=== PATIENT | female | born 1960 | race Caucasian/White ===

== ENCOUNTER 2019-08-23 19:47 | Emergency (ER) | payer MEDICARE, MEDICAID ==
[~2019-08-23] VITALS: Ht 147.3 cm; Wt 35.4 kg
--- NOTE | 2019-08-23 20:30 | NUR ---
PT HAS CO OF COUGH W GREEN SPUTUM AND "DIARRHEA FOR OVER A 1 YEAR". PT STATES "I HEAR A WHISTLING IN MY CHEST". PT STATES IT IS DIFFICULT TO BREATH AND WALK. MEDICAL STUDENT AT BEDSIDE. PT IS NOT IN ANY DISTRESS AT THIS TIME. VS STABLE.
[2019-08-23 20:32] VITALS: BP 130/85
--- NOTE | 2019-08-23 20:47 | NUR ---
RECEIVED REPORT FROM ROQUE Mendoza. ASSUMING CARE AT THIS TIME.
--- NOTE | 2019-08-23 20:47 | NUR ---
PT TAKEN TO XRAY.
--- NOTE | 2019-08-23 20:56 | NUR ---
ALL RESULTS ARE BACK AT THIS TIME. CHART UP FOR RECHECK.
--- NOTE | 2019-08-23 21:10 | NUR ---
MD AT BEDSIDE TO UPDATE PT ON POC.
== END 2019-08-23 21:54 | disposition home or self-care (01) ==
LOC: ED 21:30
DX: J44.1 Chronic obstructive pulmonary disease with (acute) exacerbation (principal); F17.200 Nicotine dependence, unspecified, uncomplicated
CPT/HCPCS: 71046; 93005; 99283

== ENCOUNTER 2019-10-11 13:31 | Emergency (ER) | payer MEDICAID, MEDICARE ==
[~2019-10-11] VITALS: Ht 147.3 cm; Wt 35.1 kg
[2019-10-11 14:29] LABS: BASOPHILS # (AUTO) 0.05 x10^3/uL (0-0.1); BASOPHILS % (AUTO) 1 % (0-1); EOSINOPHILS # (AUTO) 0.42 x10^3/uL (0-0.4); EOSINOPHILS % (AUTO) 5 % (1-7); LYMPHOCYTES % (AUTO) 32 % (22-44); MD NO; MEAN CORPUSCULAR HEMOGLOBIN 33.9 pg (27.0-34.8); MEAN CORPUSCULAR HGB CONC 34.6 g/dL (32.4-35.8); MEAN CORPUSCULAR VOLUME 97.9 fL (80-100); MEAN PLATELET VOLUME 7.4 fL (7.4-10.4); MONOCYTES # (AUTO) 0.55 x10^3/uL (0.2-0.8); MONOCYTES % (AUTO) 6 % (2-9); NEUTROPHILS # (AUTO) 5.03 x10^3/uL (1.8-6.8); NEUTROPHILS % (AUTO) 57 % (42-75); PLATELET COUNT 317 x10^3/uL (130-400); RED BLOOD COUNT 4.86 x10^6/uL (3.82-5.3); RED CELL DISTRIBUTION WIDTH 12.9 % (9.6-15.2)
[2019-10-11 14:37] LABS: ALBUMIN 3.6 g/dL (3.4-5.0); ANION GAP 6 mmol/L (5-15); CHLORIDE 104 mmol/L (98-107)
[2019-10-11 14:42] LABS: CREATININE 0.77 mg/dL (0.55-1.02)
[2019-10-11 14:43] LABS: ALANINE AMINOTRANSFERASE 31 U/L (12-78); ALKALINE PHOSPHATASE 86 U/L (45-117); BILIRUBIN,TOTAL 0.4 mg/dL (0.2-1.0); TOTAL PROTEIN 8.1 g/dL (6.4-8.2); TROPONIN I < 0.015 ng/mL (0.000-0.045)
--- NOTE | 2019-10-11 16:32 | NUR ---
ASSISTANT EDITOR: PT AMBULATED TO ROOM AT THIS TIME. STEADY UPON AMBULATION. NAD NOTED.
[2019-10-11] MEDS ORDERED: ALBUTEROL/IPRATROPIUM 2.5MG/0.5MG, 3 ML ONE (17:12)
[2019-10-11] MEDS ORDERED: ALBUTEROL/IPRATROPIUM 2.5MG/0.5MG, 3 ML NPPB ONE (17:30)
--- NOTE | 2019-10-11 17:44 | NUR ---
JANNETTE RN: MEDICATED PER Oct.24 RIGHTS VERIFIED PRIOR.
[2019-10-11 17:48] VITALS: BP 126/75
--- NOTE | 2019-10-11 17:56 | NUR ---
DISCHARGE INSTRUCTIONS REVIEWED
== END 2019-10-11 18:15 | disposition home or self-care (01) ==
LOC: ED 18:00
DX: J43.9 Emphysema, unspecified (principal); F17.200 Nicotine dependence, unspecified, uncomplicated; R19.7 Diarrhea, unspecified
CPT/HCPCS: 36415; 71046; 80053; 83880; 84484; 85025; 93005; 94640; 99285; J7512; J7620

== ENCOUNTER 2019-12-03 11:41 | Emergency (ER) | payer MEDICARE ==
[~2019-12-03] VITALS: Ht 147.3 cm; Wt 36.8 kg
[2019-12-03 12:03] VITALS: BP 125/65
--- NOTE | 2019-12-03 12:23 | NUR ---
GRAPHIC ART SALES REPRESENTATIVE: PT TO ROOM FROM LOBBY VIA WHEELCHAIR
--- NOTE | 2019-12-03 12:35 | NUR ---
Pt here for left ear pain with no radiation. Pt reports she has a cough but patient reports she has a cough normally due to copd and emphysema. Pt reports she is just mainly concerned with ear pain in her left ear. Pt not normally ambulates uses a wheelchair which she is in. Pt connected to monitors and call light in reach. Awaiting further orders.
--- NOTE | 2019-12-03 14:30 | NUR ---
Patient/Caregiver given discharge instructions and they have confirmed that they understand the instructions. Patient ambulatory with steady gait.
== END 2019-12-03 14:31 | disposition home or self-care (01) ==
LOC: ED 12:25
DX: J06.9 Acute upper respiratory infection, unspecified (principal); H66.002 Acute suppurative otitis media without spontaneous rupture of ear drum, left ear; J44.9 Chronic obstructive pulmonary disease, unspecified; R94.31 Abnormal electrocardiogram [ECG] [EKG]
CPT/HCPCS: 71045; 93005; 99283

== ENCOUNTER 2019-12-11 09:15 | Emergency (ER) | payer MEDICARE ==
[~2019-12-11] VITALS: Ht 147.3 cm; Wt 35.7 kg
--- NOTE | 2019-12-11 09:31 | NUR ---
PATIENT ARRIVES WITH DIARRHEA AND ABDOMINAL PAIN SINCE YESTERDAY. SHE HAS NO NAUSEA. SHE HAD HEMOROIDECTOMY 2009 AND BELIEVES ITS RELATED TO THIS.
[2019-12-11] MEDS ORDERED: GABA-827 PO (09:36)
[2019-12-11] MEDS ORDERED: SODIUM CHLORIDE 0.9% 1,000ML IVBOLUS ONE (10:00)
[2019-12-11] MEDS ORDERED: MORPHINE SULFATE 4 MG/ML, 1ML IVPush PRN (10:00)
[2019-12-11] MEDS ORDERED: ONDANSETRON 2MG/ML, 2ML IVPush ONE (10:00)
[2019-12-11] MEDS ORDERED: SODIUM CHLORIDE FLUSH 10ML SYR IVF ONE (10:00)
[2019-12-11 10:14] LABS: ALANINE AMINOTRANSFERASE 62 U/L (12-78); ALBUMIN 3.2 g/dL (3.4-5.0); CALCIUM 8.8 mg/dL (8.5-10.1); CHLORIDE 109 mmol/L (98-107)
[2019-12-11] MEDS ORDERED: MORPHINE SULFATE 4 MG/ML, 1ML ONE (10:15)
[2019-12-11] MEDS ORDERED: ONDANSETRON 2MG/ML, 2ML ONE (10:15)
[2019-12-11 10:19] LABS: BASOPHILS # (AUTO) 0.05 x10^3/uL (0-0.1); BASOPHILS % (AUTO) 1 % (0-1); EOSINOPHILS # (AUTO) 0.35 x10^3/uL (0-0.4); EOSINOPHILS % (AUTO) 5 % (1-7); LYMPHOCYTES # (AUTO) 2.27 x10^3/uL (1-3.4); LYMPHOCYTES % (AUTO) 32 % (22-44); MD NO; MEAN CORPUSCULAR HEMOGLOBIN 33.8 pg (27.0-34.8); MEAN CORPUSCULAR VOLUME 99.2 fL (80-100); MEAN PLATELET VOLUME 7.4 fL (7.4-10.4); MONOCYTES # (AUTO) 0.53 x10^3/uL (0.2-0.8); MONOCYTES % (AUTO) 8 % (2-9); NEUTROPHILS # (AUTO) 3.91 x10^3/uL (1.8-6.8); NEUTROPHILS % (AUTO) 55 % (42-75); PLATELET COUNT 264 x10^3/uL (130-400); RED BLOOD COUNT 4.35 x10^6/uL (3.82-5.3); RED CELL DISTRIBUTION WIDTH 13.2 % (9.6-15.2)
--- NOTE | 2019-12-11 10:19 | NUR ---
PATIENT CAN'T POOP AT THIS TIME FOR SAMPLE. BEDSIDE COMMODE IN ROOM. URINE OBTAINED AND SENT. AWAITING CT SCAN
[2019-12-11 10:20] LABS: ALKALINE PHOSPHATASE 90 U/L (45-117); ANION GAP 5 mmol/L (5-15); BILIRUBIN,TOTAL 0.3 mg/dL (0.2-1.0); CREATININE 0.67 mg/dL (0.55-1.02)
[2019-12-11] MEDS ORDERED: OMNIPAQUE 350 MG/ML, 75ML BOTTLE ONE (11:17)
--- NOTE | 2019-12-11 11:37 | NUR ---
STATES PAIN IMPROVED BUT STILL HAS PAIN IN [place] THAT IS 8 OF 10. SHE CAN'T POOP STILL.
[2019-12-11] MEDS ORDERED: metroNIDAZOLE 500 MG TABLET ONE (11:54)
[2019-12-11] MEDS ORDERED: CIPROFLOXACIN 500 MG TABLET ONE (11:55)
[2019-12-11] MEDS ORDERED: metroNIDAZOLE 500 MG TABLET PO ONE (12:00)
[2019-12-11] MEDS ORDERED: CIPROFLOXACIN 500 MG TABLET PO ONE (12:00)
[2019-12-11 12:03] VITALS: BP 128/78
== END 2019-12-11 12:05 | disposition home or self-care (01) ==
LOC: ED 09:46
DX: K57.92 Diverticulitis of intestine, part unspecified, without perforation or abscess without bleeding (principal); R10.32 Left lower quadrant pain; R10.31 Right lower quadrant pain; R19.7 Diarrhea, unspecified; G89.29 Other chronic pain; J44.9 Chronic obstructive pulmonary disease, unspecified; F17.210 Nicotine dependence, cigarettes, uncomplicated; Z90.89 Acquired absence of other organs; Z90.710 Acquired absence of both cervix and uterus
CPT/HCPCS: 36415; 74177; 80053; 83605; 83690; 85025; 96374; 96375; 99285; J2270; J2405; J7030; Q9967; 96361

== ENCOUNTER 2021-04-30 11:22 | Emergency (ER) | payer MEDICARE ==
[~2021-04-30] VITALS: Ht 147.3 cm; Wt 36.7 kg
[~2021-04-30 11:22] MED LIST: GABA-827 PO
[2021-04-30 11:53] VITALS: BP 117/50
[2021-04-30] MEDS ORDERED: ALBUTEROL/IPRATROPIUM 2.5MG/0.5MG, 3 ML NPPB ONE (12:00)
--- NOTE | 2021-04-30 18:11 | NUR ---
ERRAND RUNNER: CALLED FOR ROOM, NO ANSWER
--- NOTE | 2021-04-30 20:04 | NUR ---
NA X 2 WHEN CALLED FOR ROOM
--- NOTE | 2021-04-30 20:19 | NUR ---
NA X 3
== END 2021-04-30 20:20 | disposition left against medical advice (07) ==
LOC: ED 12:00
DX: R05 Cough (principal); Z20.822 Contact with and (suspected) exposure to COVID-19; R09.81 Nasal congestion
CPT/HCPCS: 71046; 99284; U0003; U0005

== ENCOUNTER 2021-05-01 10:53 | Emergency (ER) | payer MEDICARE ==
[~2021-05-01] VITALS: Ht 144.8 cm; Wt 39.5 kg
[2021-05-01 11:58] VITALS: BP 144/78
--- NOTE | 2021-05-01 15:20 | NUR ---
ASSOCIATE CHEMIST: CALLED FOR V/S NO ANSWER
--- NOTE | 2021-05-01 16:13 | NUR ---
COLLISION MECHANIC: CALLED FOR V/S, NO ANSWER
--- NOTE | 2021-05-01 21:14 | NUR ---
NA X 3
== END 2021-05-01 20:27 | disposition left against medical advice (07) ==
LOC: ED 11:15
DX: R05 Cough (principal); Z53.21 Procedure and treatment not carried out due to patient leaving prior to being seen by health care provider